=== PATIENT | female | born 1960 | race Caucasian/White ===

== ENCOUNTER 2020-10-07 14:12 | Emergency (ER) | payer BC, OTHER ==
[2020-10-07] MEDS ORDERED: Ondansetron 4 MG/2 ML SDV IVPUSH ONE (15:03)
[2020-10-07] MEDS ORDERED: HYDROmorphone 1 MG/ML Syringe IVPUSH ONE ×2 (15:03→18:03)
[2020-10-07] MEDS ORDERED: Sodium Chloride 0.9% 10 ML Syringe FLUSH PRN (15:03)
[2020-10-07] MEDS ORDERED: Sodium Chloride 0.9% 1,000 ML IV SCH (15:15)
--- NOTE | 2020-10-07 15:21 | EDM.PDOC ---
ED HPI GENERAL MEDICAL PROBLEM - General Chief Complaint: Abdominal Pain Stated Complaint: LOWER R ABD PAIN/POST SURGERY 09/21 Time Seen by Provider: 10/07/20 14:23 Source of Information: Reports: Patient History Limitations: Reports: No Limitations - History of Present Illness INITIAL COMMENTS - FREE TEXT/NARRATIVE: 6-year-old female presents the emergency department today with complaints of severe right lower quadrant abdominal pain. She states this started last night as she was laying in bed. It came on very suddenly and it was very severe. She states she was unable to sleep last night throughout the night due to the severity of the pain. Of note, pt had surgery in [place] for prolapsed uterus and rectum and also had bladder sling done on September 21, 2020. She denies any recent fever or chills. She states that she has vomited due to the severity of the pain today. She states she had a normal bowel movement today. She denies any urinary symptoms. She states that since the surgery and up until last evening she had been doing quite well postoperatively. Of note, she does have a history of atrial fibrillation and she is not currently on her anticoagulants d ue to having recent surgery. She states that they state they will restart her back on her anticoagulants at her 4-week postoperative checkup. She denies any shortness of breath. Treatments BAG SHAKER: Reports: Other (see below) Other Treatments BAG SHAKER: hydrocodone Middle Abdomen Pain Score (Numeric/FACES): 10 - Related Data Allergies Allergy/AdvReac Type Severity Reaction Status Date / Time bee venom protein (honey bee) Allergy Swelling Verified 10/07/20 17:05 erythromycin base Allergy Swelling Verified 10/07/20 17:05 [Erythromycin Base] Home Meds: Home Meds Benazepril [Lotensin] 40 mg PO DAILY 09/07/13 [History] Lansoprazole [Prevacid] 30 mg PO DAILY 09/07/13 [History] Levothyroxine [Synthroid] 225 mcg PO DAILY 09/07/13 [History] Metoprolol Succinate 200 mg PO BID 09/07/13 [History] hydroCHLOROthiazide [Hydrochlorothiazide] 50 mg PO DAILY 09/07/13 [History] Apixaban [Eliquis] 5 mg PO BID 01/07/18 [History] Azelastine HCl [Azelastine] 1 drop EYEBOTH ASDIRECTED PRN 01/07/18 [History] Cholecalciferol (Vitamin D3) [Vitamin D3] 1 tab PO DAILY 01/07/18 [History] Cholecalciferol (Vitamin D3) [Vitamin D3] 2 tab PO BEDTIME 01/07/18 [History] Empagliflozin [Jardiance] 10 mg PO DAILY 01/07/18 [History] Fish Oil/Bowers-3 Fatty Acids [Fish Oil 1,000 MG] 1,000 mg PO DAILY 01/07/18 [History] Glucosam/Chondr/Collagn/Hyalur [Glucosamine & Chondroitin Cap] 1 tab PO DAILY 01/07/18 [History] Linagliptin [Tradjenta] 5 mg PO DAILY 01/07/18 [History] Montelukast [Singulair] 10 mg PO DAILY 01/07/18 [History] Nitroglycerin 0.4 mg SL ASDIRECTED PRN 01/07/18 [History] Pregabalin [Lyrica] 100 mg PO BEDTIME 01/07/18 [History] dilTIAZem HCL [Dilt-Xr] 180 mg PO BEDTIME 01/07/18 [History] metFORMIN HCl [Glucophage] 2 tab PO BID 01/07/18 [History] levoFLOXacin [Levaquin] 750 mg PO DAILY #5 tab 10/07/20 [Rx] Past Medical History HEENT History: Reports: Other (See Below) Other HEENT History: top and bottom denture Cardiovascular History: Reports: Afib, Hypertension Respiratory History: Reports: Sleep Apnea Other Respiratory History: uses CPAP Gastrointestinal History: Reports: GERD Genitourinary History: Reports: None [employer] History: Reports: Musculoskeletal History: Reports: Arthritis Neurological History: Reports: Concussion, Migraines, Seizure Other Neuro History: 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 Endocrine/Metabolic History: Reports: Diabetes, Type II, Hypothyroidism, Obesity/BMI 30+ Other Endocrine/Metabolic History: pituitary tumor Hematologic History: Reports: Blood Transfusion(s) Other Hematologic History: hx of transfusion for post bleed - Infectious Disease History Infectious Disease History: Reports: Chicken Pox, Influenza, Measles, Mumps, Novel Coronavirus - Past Surgical History Head Surgeries/Procedures: Reports: None GI Surgical History: Reports: Colonoscopy Female Surgical History: Reports: Section, Hysterectomy, Tubal Ligation, Other (See Below) Other Female Surgeries/Procedures: prolapse uterus/rectum and bladder sling 09-21-20 Musculoskeletal Surgical History: Reports: Other (See Below) Other Musculoskeletal Surgeries/Procedures:: removal of foreign body from rt big toe under anesthesia Social & Family History - Tobacco Use Tobacco Use Status *Q: Never Tobacco User - Caffeine Use Caffeine Use: Reports: Coffee, Soda, Tea - Recreational Drug Use Recreational Drug Use: No ED ROS GENERAL - Review of Systems Review Of Systems: Comprehensive ROS is negative, except as noted in HPI. ED EXAM, GI/ABD - Physical Exam Exam: See Below Exam Limited By: No Limitations General Appearance: Alert, WD/WN, Severe Distress Ears: Normal External Exam, Hearing Grossly Normal Nose: Normal Inspection Throat/Mouth: Normal Inspection, Normal Lips, Normal Voice, No Airway Compromise Head: Atraumatic Neck: Normal Inspection, Supple Respiratory/Chest: No Respiratory Distress, Lungs Clear, Normal Breath Sounds, No Accessory Muscle Use, Chest Non-Tender Cardiovascular: Normal Peripheral Pulses, No Murmur, Irregularly Irregular GI/Abdominal Exam: Normal Bowel Sounds, Soft, No Distention, Tender (Right lower quadrant), Other (Abdomen is obese) (Female) Exam: Deferred Rectal (Female) Exam: Deferred Back Exam: Normal Inspection Extremities: Normal Inspection Neurological: Alert, Oriented, Normal Cognition Psychiatric: Normal Affect, Normal Mood Skin Exam: Warm, Dry, Intact, Normal Color, No Rash Lymphatic: No Adenopathy #1 Interpretation EKG Date: 10/07/20 Time: 15:33 Rhythm: A-Fib Rate (Beats/Min): 83 [place]: Normal P-Wave: Present QRS: Normal ST-T: Normal QT: Normal EKG Interpretation Comments: Per Dr. Martínez interpretation: Atrial fib with a ventricular rate of 83; T wave inversion V2 through V4; mild ST depression V5 and V6 Course - Vital Signs Text/Narrative:: Upon my assessment the patient is writhing in pain. She is guarding her abdomen. She is diaphoretic. She states she is nauseated and pain is a 10 out of 10 to her right lower quadrant which radiates across her lower abdomen to the left side. She is unsure of whether or not she has had her appendix out in the past. She does have positive bowel tones. Abdomen is tender even with auscultation to the right lower quadrant. I have ordered labs, EKG, and a urinalysis with micro and culture if pending. Patient will likely need to have a CT of the abdomen and pelvis however I would like to see what her BUN and creatinine are prior to ordering this. I have also ordered for the patient to receive normal saline as she is likely dehydrated due to the vomiting, Dilaudid for pain and Zofran for vomiting. Last Recorded V/S: Last Vital Signs Temp 97.6 F 10/07/20 16:45 Pulse 92 10/07/20 18:58 Resp 22 H 10/07/20 16:45 BP 184/121 H 10/07/20 18:58 Pulse Ox 99 10/07/20 16:45 - Orders/Labs/Meds Orders: Active Orders 24 hr Category Date Time Status EKG Documentation Completion [RC] STAT Care 10/07/20 15:10 Active Abdomen Pelvis w Cont [CT] Stat Exams 10/07/20 15:38 Taken CULTURE URINE [MREF] Stat Lab 10/07/20 15:58 Received Sodium Chloride 0.9% [Normal Saline] 1,000 ml Med 10/07/20 15:15 Active IV ASDIRECTED Sodium Chloride 0.9% [Saline Flush] Med 10/07/20 15:03 Active 10 ml FLUSH ASDIRECTED PRN Saline Lock Insert [OM.PC] Stat Oth 10/07/20 15:03 Ordered Medication Orders Sodium Chloride (Normal Saline) 1,000 mls @ 100 mls/hr IV ASDIRECTED RAISA Last Admin: 10/07/20 15:50 Dose: 100 mls/hr Documented by: [id number] Sodium Chloride (Sodium Chloride 0.9% 10 Ml Syringe) 10 ml FLUSH ASDIRECTED PRN PRN Reason: Keep Vein Open Last Admin: 10/07/20 16:43 Dose: 10 ml Documented by: [id number] Labs: Laboratory Tests 10/07/20 10/07/20 10/07/20 Range/Units 14:25 14:25 15:58 WBC 9.52 (3.98-10.04) K/mm3 RBC 4.95 (3.98-5.22) M/mm3 Hgb 15.2 (11.2-15.7) gm/dl Hct 45.0 H (34.1-44.9) % MCV 90.9 (79.4-94.8) fl MCH 30.7 (25.6-32.2) pg MCHC 33.8 (32.2-35.5) g/dl RDW Std Deviation 44.0 (36.4-46.3) fL Plt Count 343 (182-369) K/mm3 MPV 9.8 (9.4-12.3) fl Neut % (Auto) 64.3 (34.0-71.1) % Lymph % (Auto) 23.9 (19.3-51.7) % [place] % (Auto) 10.2 (4.7-12.5) % Eos % (Auto) 0.9 (0.7-5.8) Baso % (Auto) 0.4 (0.1-1.2) % Neut # (Auto) 6.11 (1.56-6.13) K/mm3 Lymph # (Auto) 2.28 (1.18-3.74) K/mm3 [place] # (Auto) 0.97 H (0.24-0.36) K/mm3 Eos # (Auto) 0.09 (0.04-0.36) K/mm3 Baso # (Auto) 0.04 (0.01-0.08) K/mm3 Sodium 141 (136-145) mEq/L Potassium 3.5 (3.5-5.1) mEq/L Chloride 103 (98-107) mEq/L Carbon Dioxide 21 (21-32) mEq/L Anion Gap 20.5 H (5-15) BUN 14 (7-18) mg/dL Creatinine 1.2 H (0.55-1.02) mg/dL Est Cr Clr Drug Dosing 44.86 mL/min Estimated GFR (MDRD) 46 (>60) mL/min BUN/Creatinine Ratio 11.7 L (14-18) Glucose 115 H (70-99) mg/dL Calcium 9.7 (8.5-10.1) mg/dL Magnesium 1.6 L (1.8-2.4) mg/dL Total Bilirubin 0.7 (0.2-1.0) mg/dL AST 31 (15-37) U/L ALT 44 (14-59) U/L Alkaline Phosphatase 113 (46-116) U/L C-Reactive Protein 1.6 H* (<1.0) mg/dL Total Protein 7.9 (6.4-8.2) g/dl Albumin 3.9 (3.4-5.0) g/dl Globulin 4.0 gm/dL Albumin/Globulin Ratio 1.0 (1-2) Urine Color Yellow (Yellow) Urine Appearance Slt cloudy H (Clear) Urine pH 8.5 H (5.0-8.0) Ur Specific [place] 1.025 (1.005-1.030) Urine Protein 2+ H (Negative) Urine Glucose (UA) 2+ H (Negative) Urine Ketones Negative (Negative) Urine Occult Blood 1+ H (Negative) Urine Nitrite Negative (Negative) Urine Bilirubin Negative (Negative) Urine Urobilinogen 0.2 (0.2-1.0) Ur Leukocyte Esterase Trace H (Negative) Urine RBC 20-30 H (0-5) /hpf Urine WBC 20-30 H (0-5) /hpf Ur Epithelial Cells 5-10 H (0-5) /hpf Urine Bacteria Few (FEW) /hpf Urine Mucus Not seen (FEW) /hpf Meds: Medications Generic Name Dose Route Start Last Admin Trade Name Scott PRN Reason Stop Dose Admin Sodium Chloride 1,000 mls @ 100 mls/hr 10/07/20 15:15 10/07/20 15:50 Normal Saline IV 100 mls/hr ASDIRECTED RAISA Administration Sodium Chloride 10 ml 10/07/20 15:03 10/07/20 16:43 Sodium Chloride 0.9% 10 Ml Syringe FLUSH 10 ml ASDIRECTED PRN Administration Keep Vein Open Discontinued Medications Generic Name Dose Route Start Last Admin Trade Name Scott PRN Reason Stop Dose Admin Hydromorphone HCl 1 mg 10/07/20 15:03 10/07/20 15:49 Hydromorphone 1 Mg/Ml Syringe IVPUSH 10/07/20 15:04 1 mg ONETIME ONE Administration Hydromorphone HCl 1 mg 10/07/20 18:03 10/07/20 18:10 Hydromorphone 1 Mg/Ml Syringe IVPUSH 10/07/20 18:04 1 mg ONETIME ONE Administration Ceftriaxone Sodium 1 gm/ 100 mls @ 200 mls/hr 10/07/20 17:58 10/07/20 17:50 Sodium Chloride IV 10/07/20 18:27 200 mls/hr ONETIME ONE Administration Iopamidol 100 ml 10/07/20 17:32 10/07/20 17:35 Iopamidol 612 Mg/Ml 100 Ml Bottle IVPUSH 10/07/20 17:33 100 ml ONETIME ONE Administration Metoclopramide HCl 5 mg 10/07/20 18:23 10/07/20 18:26 Metoclopramide 10 Mg/2 Ml Sdv IVPUSH 10/07/20 18:24 5 mg ONETIME ONE Administration Metoprolol Succinate 200 mg 10/07/20 17:57 10/07/20 18:58 Metoprolol Succinate 50 Mg Tab.Er PO 10/07/20 17:58 200 mg ONETIME ONE Administration Ondansetron HCl 4 mg 10/07/20 15:03 10/07/20 15:49 Ondansetron 4 Mg/2 Ml Sdv IVPUSH 10/07/20 15:04 4 mg ONETIME ONE Administration Phenazopyridine HCl 95 mg 10/07/20 18:03 10/07/20 18:58 Phenazopyridine 95 Mg Tab PO 10/07/20 18:04 95 mg NOW STA Administration Sodium Chloride 10 ml 10/07/20 17:32 10/07/20 17:36 Sodium Chloride 0.9% 10 Ml Syringe FLUSH 10/07/20 17:33 10 ml ONETIME ONE Administration - Re-Assessments/Exams Free Text/Narrative Re-Assessment/Exam: 10/07/20 15:40 Hematology reveals a WBC of 9.52, hemoglobin 15.2, hematocrit 45.0, platelet count 343, chemistry reveals a sodium of 141, potassium 3.5, anion gap 20.5, BUN 14, creatinine 1.2, GFR is 46, glucose 115, calcium 9.7, magnesium 1.6, total bilirubin 0.7, AST 31, ALT T 44, alk phos 113, C-reactive protein 1.6 I have ordered a CT of the abdomen and pelvis with contrast. 10/07/20 16:33 Urinalysis reveals a urine pH of 8.5, 2+ protein, 2+ glucose, 1+ occult blood, nitrite negative, leukocyte Estrace trace, urine RBC 20-30, urine WBC 20-30, urine epithelial cells 5-10 10/07/20 17:22 Patient states that her pain is now down to a 7 out of 10. 10/07/20 18:00 [facility] radiologist impression: Findings suspicious for acute right-sided pyelonephritis. Clinical laboratory correlation is recommended. I am going to go ahead and treat the patient for pyelonephritis as her urinalysis did reveal UTI. Her lower abdominal pain is likely due to cystitis. I have ordered 1 g of Rocephin IV for this patient she has been afebrile, and her white count is not elevated so she will be discharged home after the infusion with a prescription for oral antibiotics. She will need to follow-up with her primary care provider when she has completed the course of antibiotics. Patient states she is still having significant amount of suprapubic pain. I have ordered for her to receive another dose of Dilaudid. I will also order Pyridium to see if this helps with the cystitis. The patient's blood pressures have been elevated while in the emergency department however she has not taken any of her oral antihypertensives today. Nursing staff has verified her medication list. I have ordered her morning dose of metoprolol. Departure - Departure Time of Disposition: 19:10 Disposition: Home, Self-Care 01 Condition: Good Clinical Impression: Pyelonephritis - Discharge Information Prescriptions: levoFLOXacin [Levaquin] 750 mg PO DAILY #5 tab Instructions: Pyelonephritis, Adult, [id number] Referrals: Jodee Carter NP [Primary Care Provider] - Forms: ED Department Discharge Additional Instructions: You were seen in the emergency department today with lower abdominal pain. Labs, urinalysis and a CT scan were completed. You do have a kidney infection on the right side and a urinary tract infection with is causing your lower abdominal discomfort. You were treated with IV fluids, IV pain medication, nausea medication and IV antibiotics. You were also given your morning dose of metoprolol as well as Pyridium. The Pyridium should help to reduce the discomfort in your bladder. I have sent a prescription to your pharmacy for Levaquin. This medication needs to be taken daily for 5 days. You will need to follow-up with your primary provider once you have completed this course of medication to be sure that your infection has resolved. Should your condition worsen or change or should you develop fever, chills, nausea or vomiting, do not hesitate returning to the emergency department as you may need further evaluation. Sepsis Event Note (ED) - Evaluation Sepsis Screening Result: No Definite Risk - Focused Exam Vital Signs: Vital Signs Temp Pulse Pulse Resp BP BP Pulse Ox 10/07/20 18:58 92 184/121 H 10/07/20 16:45 97.6 F 86 22 H 201/128 H 99 10/07/20 14:28 96.6 F L 88 24 H 184/118 H 100 - My Orders Last 24 Hours: My Active Orders 10/07/20 15:03 Sodium Chloride 0.9% [Saline Flush] 10 ml FLUSH ASDIRECTED PRN Saline Lock Insert [OM.PC] Stat 10/07/20 15:10 EKG Documentation Completion [RC] STAT 10/07/20 15:15 Sodium Chloride 0.9% [Normal Saline] 1,000 ml IV ASDIRECTED 10/07/20 15:38 Abdomen Pelvis w Cont [CT] Stat 10/07/20 15:58 CULTURE URINE [MREF] Stat - Assessment/Plan Last 24 Hours: My Active Orders 10/07/20 15:03 Sodium Chloride 0.9% [Saline Flush] 10 ml FLUSH ASDIRECTED PRN Saline Lock Insert [OM.PC] Stat 10/07/20 15:10 EKG Documentation Completion [RC] STAT 10/07/20 15:15 Sodium Chloride 0.9% [Normal Saline] 1,000 ml IV ASDIRECTED 10/07/20 15:38 Abdomen Pelvis w Cont [CT] Stat 10/07/20 15:58 CULTURE URINE [MREF] Stat
[2020-10-07] MEDS ORDERED: Iopamidol 612 MG/ML 100 ML Bottle IVPUSH ONE (17:32)
[2020-10-07] MEDS ORDERED: Sodium Chloride 0.9% 10 ML Syringe FLUSH ONE (17:32)
[2020-10-07] MEDS ORDERED: Metoprolol Succinate 50 MG Tab.ER PO ONE (17:57)
[2020-10-07] MEDS ORDERED: cefTRIAXone 1 GM in Sodium Chloride 0.9% 100 ML IV ONE (17:58)
[2020-10-07] MEDS ORDERED: Phenazopyridine 95 MG Tab PO STA (18:03)
[2020-10-07] MEDS ORDERED: Metoclopramide 10 MG/2 ML SDV IVPUSH ONE (18:23)
--- NOTE | 2020-10-08 11:11 | CT ---
CT abdomen and pelvis Technique: Multiple axial sections were obtained from above the dome of the diaphragm inferiorly through the pubic symphysis. Intravenous and oral contrast was utilized. Delayed images were also obtained through the abdomen and pelvis. Reconstructed coronal and sagittal images were obtained. Comparison: No prior CT abdomen or pelvis study is available. Findings: Visualized lung bases show nothing acute. Liver shows no focal abnormality. Spleen size is normal. Adrenal glands show no nodule. No abnormality is appreciated within the pancreas. Gallbladder contains no calcified gallstones. Abdominal aorta shows mild atherosclerotic change but no aneurysm. Atherosclerotic change continues into the iliac vessels. No pelvic mass or adenopathy is seen. Appendix is not visualized. Right kidney shows diminished enhancement which persists on delayed images which is highly suspicious for focal area of pyelonephritis. Both kidneys show symmetric contrast excretion as well as contrast noted within the bladder. Bone window settings were reviewed which show spondylitic defects at L5-S1. L5-S1 disc shows vacuum phenomena and disc space narrowing. Other less prominent degenerative change as noted above. Slight fat-containing umbilical hernia is noted. Impression: 1. Findings are suspicious for focal right-sided pyelonephritis. Please correlate with laboratory findings. 2. Other findings believed to be incidental and nonacute as noted above. Diagnostic code #3 I agree with preliminary report from [facility], finalized on 10/07/20, 6:50 PM CDT, code 1
== END 2020-10-07 19:31 | disposition home or self-care (01) ==
LOC: JD.ED 14:12
DX: N12 Tubulo-interstitial nephritis, not specified as acute or chronic (principal); I48.91 Unspecified atrial fibrillation; I10 Essential (primary) hypertension; K21.9 Gastro-esophageal reflux disease without esophagitis; E11.9 Type 2 diabetes mellitus without complications; E03.9 Hypothyroidism, unspecified; E66.9 Obesity, unspecified; Z68.42 Body mass index [BMI] 45.0-49.9, adult; Z79.01 Long term (current) use of anticoagulants; Z79.899 Other long term (current) drug therapy; Z91.030 Bee allergy status; Z88.1 Allergy status to other antibiotic agents
CPT/HCPCS: 36415; 74177; 80053; 81001; 83735; 85025; 86140; 87086; 93005; 96365; 96375; 96376; 99284; A9270; J0696; J1170; J2405; J2765; J7030; Q9967; 93010; 99283